=== PATIENT | female | born 1980 | race Caucasian/White ===

== ENCOUNTER 2020-12-06 11:55 | Outpatient (REF) | payer MEDICAID, SELFPAY | END 2020-12-06 11:56 | disposition home or self-care (01) | LOC: HO.MDS 11:55 | PROVIDERS: PCP Family Medicine; Visit Provider Internal Medicine Medical Oncology | DX: D50.9 Iron deficiency anemia, unspecified (principal) | CPT/HCPCS: 96365; J2916 ==

== ENCOUNTER 2020-12-10 08:13 | Outpatient (REF) | payer MEDICAID, SELFPAY | END 2020-12-10 08:14 | disposition home or self-care (01) | LOC: HO.MDS 08:13 | PROVIDERS: PCP Family Medicine; Visit Provider Internal Medicine Medical Oncology | DX: D50.9 Iron deficiency anemia, unspecified (principal) | CPT/HCPCS: 96365; J2916 ==

== ENCOUNTER 2020-12-13 08:21 | Outpatient (REF) | payer MEDICAID, SELFPAY | END 2020-12-13 08:22 | disposition home or self-care (01) | LOC: HO.MDS 08:21 | PROVIDERS: PCP Family Medicine; Visit Provider Internal Medicine Medical Oncology | DX: D50.9 Iron deficiency anemia, unspecified (principal) | CPT/HCPCS: 96365; J2916 ==

== ENCOUNTER 2020-12-18 08:08 | Outpatient (REF) | payer MEDICAID, SELFPAY ==
[2020-12-18 08:29] LABS: MANUAL DIFF FLAG NO
[2020-12-18 08:32] LABS: Basophils Percent Auto 0.3 % (0-2); Eosinophils Absolute Auto 0.1 X10*3/uL (0.0-0.4); Eosinophils Percent Auto 1.2 % (0-4); Hematocrit 32.8 % (37-47); Hemoglobin 10.1 g/dl (12.0-16.0); Imm Gran Abs Auto 0.01 X10*3/uL (0.00-0.03); Imm Gran Pct Auto 0.2 % (0.0-0.4); Lymphocytes Percent Auto 33.8 % (20-40); Mean Corpuscular HGB Conc 30.8 g/dl (31.0-35.0); Mean Corpuscular Hemoglobin 24.3 pg (27.0-33.0); Monocytes Absolute Auto 0.4 X10*3/uL (0.1-1.2); Monocytes Percent Auto 6.3 % (2-11); Neutrophils Absolute Auto 3.4 X10*3/uL (2.0-8.3); Neutrophils Percent Auto 58.2 % (45-73); Platelet Count 283 X10*3/uL (160-400); Red Blood Count 4.15 X10*6/uL (4.20-5.50); Red Cell Distribution Width 19.3 % (11.0-16.0); White Blood Count 5.9 X10*3/uL (4.8-10.8)
== END 2020-12-18 08:09 | disposition home or self-care (01) ==
LOC: HO.MDS 08:08
PROVIDERS: PCP Family Medicine; Visit Provider Internal Medicine Medical Oncology
DX: D50.9 Iron deficiency anemia, unspecified (principal)
CPT/HCPCS: 36415; 85025; 96365; J2916

== ENCOUNTER 2020-12-21 08:23 | Outpatient (REF) | payer MEDICAID, SELFPAY | END 2020-12-21 08:24 | disposition home or self-care (01) | LOC: HO.MDS 08:23 | PROVIDERS: PCP Family Medicine; Visit Provider Internal Medicine Medical Oncology | DX: D50.9 Iron deficiency anemia, unspecified (principal) | CPT/HCPCS: 96365; J2916 ==

== ENCOUNTER 2020-12-26 08:19 | Outpatient (REF) | payer MEDICAID, SELFPAY | END 2020-12-26 08:20 | disposition home or self-care (01) | LOC: HO.MDS 08:19 | PROVIDERS: PCP Family Medicine; Visit Provider Internal Medicine Medical Oncology | DX: D50.9 Iron deficiency anemia, unspecified (principal) | CPT/HCPCS: 96365; J2916 ==

== ENCOUNTER 2020-12-28 08:27 | Outpatient (REF) | payer MEDICAID, SELFPAY | END 2020-12-28 08:28 | disposition home or self-care (01) | LOC: HO.MDS 08:27 | PROVIDERS: PCP Family Medicine; Visit Provider Internal Medicine Medical Oncology | DX: D50.9 Iron deficiency anemia, unspecified (principal) | CPT/HCPCS: 96365; J2916 ==

== ENCOUNTER 2020-12-31 07:55 | Outpatient (REF) | payer MEDICAID, SELFPAY | END 2020-12-31 07:56 | disposition home or self-care (01) | LOC: HO.MDS 07:55 | PROVIDERS: PCP Family Medicine; Visit Provider Internal Medicine Medical Oncology | DX: D50.9 Iron deficiency anemia, unspecified (principal) | CPT/HCPCS: 96365; J2916 ==

== ENCOUNTER 2021-01-04 08:29 | Outpatient (REF) | payer MEDICAID, SELFPAY ==
[2021-01-04 08:53] LABS: MANUAL DIFF FLAG NO
[2021-01-04 08:54] LABS: Basophils Percent Auto 0.5 % (0-2); Eosinophils Absolute Auto 0.1 X10*3/uL (0.0-0.4); Eosinophils Percent Auto 1.1 % (0-4); Hematocrit 35.1 % (37-47); Hemoglobin 10.9 g/dl (12.0-16.0); Imm Gran Abs Auto 0.01 X10*3/uL (0.00-0.03); Imm Gran Pct Auto 0.2 % (0.0-0.4); Lymphocytes Absolute Auto 1.4 X10*3/uL (1.2-4.9); Lymphocytes Percent Auto 31.2 % (20-40); Mean Corpuscular HGB Conc 31.1 g/dl (31.0-35.0); Mean Corpuscular Volume 83.6 fL (80-98); Mean Platelet Volume 10.5 fL (9.4-12.3); Monocytes Absolute Auto 0.3 X10*3/uL (0.1-1.2); Monocytes Percent Auto 7.1 % (2-11); Neutrophils Absolute Auto 2.6 X10*3/uL (2.0-8.3); Neutrophils Percent Auto 59.9 % (45-73); Platelet Count 296 X10*3/uL (160-400); Red Cell Distribution Width 21.4 % (11.0-16.0); White Blood Count 4.4 X10*3/uL (4.8-10.8)
== END 2021-01-04 08:30 | disposition home or self-care (01) ==
LOC: HO.MDS 08:29
PROVIDERS: PCP Family Medicine; Visit Provider Internal Medicine Medical Oncology
DX: D50.9 Iron deficiency anemia, unspecified (principal)
CPT/HCPCS: 36415; 85025; 96365; J2916

== ENCOUNTER 2022-12-25 14:06 | Outpatient (REF) | payer MEDICAID, SELFPAY | END 2022-12-25 14:07 | disposition home or self-care (01) | LOC: HO.MDS 14:06 | PROVIDERS: Visit Provider Internal Medicine | DX: D50.9 Iron deficiency anemia, unspecified (principal) | CPT/HCPCS: 96365; J1756 ==

== ENCOUNTER 2022-12-29 10:30 | Outpatient (REF) | payer MEDICAID, SELFPAY | END 2022-12-29 10:31 | disposition home or self-care (01) | LOC: HO.MDS 10:30 | PROVIDERS: Visit Provider Internal Medicine | DX: D50.9 Iron deficiency anemia, unspecified (principal) | CPT/HCPCS: 96365; J1756 ==

== ENCOUNTER 2023-01-05 11:45 | Outpatient (REF) | payer MEDICAID, SELFPAY | END 2023-01-05 11:46 | disposition home or self-care (01) | LOC: HO.MDS 11:45 | PROVIDERS: Visit Provider Internal Medicine | DX: D50.9 Iron deficiency anemia, unspecified (principal) | CPT/HCPCS: 96374; J1756 ==

== ENCOUNTER 2023-01-13 10:44 | Outpatient (REF) | payer MEDICAID, SELFPAY | END 2023-01-13 10:45 | disposition home or self-care (01) | LOC: HO.MDS 10:44 | PROVIDERS: Visit Provider Internal Medicine | DX: D50.8 Other iron deficiency anemias (principal) | CPT/HCPCS: 96365; J1756 ==

== ENCOUNTER 2023-01-20 10:39 | Outpatient (REF) | payer MEDICAID, SELFPAY ==
[2023-01-20 11:28] LABS: MANUAL DIFF FLAG NO
[2023-01-20 11:32] LABS: Basophils Percent Auto 0.4 % (0-2); Eosinophils Percent Auto 0.6 % (0-4); Hematocrit 34.2 % (37.0-47.0); Hemoglobin 10.7 g/dl (12.0-16.0); Imm Gran Abs Auto 0.01 X10*3/uL (0.00-0.03); Imm Gran Pct Auto 0.2 % (0.0-0.4); Lymphocytes Absolute Auto 1.5 X10*3/uL (1.2-4.9); Lymphocytes Percent Auto 31.8 % (20-40); Mean Corpuscular HGB Conc 31.3 g/dl (31.0-35.0); Mean Corpuscular Hemoglobin 25.2 pg (27.0-33.0); Mean Corpuscular Volume 80.7 fL (80.0-98.0); Mean Platelet Volume 10.6 fL (9.4-12.3); Monocytes Absolute Auto 0.3 X10*3/uL (0.1-1.2); Monocytes Percent Auto 5.7 % (2-11); Neutrophils Absolute Auto 2.9 x10*3/uL (2.0-8.3); Neutrophils Percent Auto 61.3 % (45-73); Platelet Count 265 X10*3/uL (160-400); Red Blood Count 4.24 X10*6/uL (4.20-5.50); Red Cell Distribution Width 22.6 % (11.0-16.0); White Blood Count 4.7 X10*3/uL (4.8-10.8)
== END 2023-01-20 10:40 | disposition home or self-care (01) ==
LOC: HO.MDS 10:39
PROVIDERS: Visit Provider Internal Medicine
DX: D50.8 Other iron deficiency anemias (principal)
CPT/HCPCS: 36415; 85025; 96365; J1756

== ENCOUNTER 2023-01-26 10:36 | Outpatient (REF) | payer MEDICAID, SELFPAY | END 2023-01-26 10:37 | disposition home or self-care (01) | LOC: HO.MDS 10:36 | PROVIDERS: Visit Provider Internal Medicine | DX: D50.8 Other iron deficiency anemias (principal) | CPT/HCPCS: 96365; J1756 ==

== ENCOUNTER 2023-02-09 10:40 | Outpatient (REF) | payer MEDICAID, SELFPAY | END 2023-02-09 10:41 | disposition home or self-care (01) | LOC: HO.MDS 10:40 | PROVIDERS: Visit Provider Internal Medicine | DX: D50.8 Other iron deficiency anemias (principal) | CPT/HCPCS: 96365; J1756 ==

== ENCOUNTER 2023-02-16 10:43 | Outpatient (REF) | payer MEDICAID, SELFPAY | END 2023-02-16 10:44 | disposition home or self-care (01) | LOC: HO.MDS 10:43 | PROVIDERS: Visit Provider Internal Medicine | DX: D50.8 Other iron deficiency anemias (principal) | CPT/HCPCS: 96365; J1756 ==

== ENCOUNTER 2023-02-24 10:43 | Outpatient (REF) | payer MEDICAID, SELFPAY | END 2023-02-24 10:44 | disposition home or self-care (01) | LOC: HO.MDS 10:43 | PROVIDERS: Visit Provider Internal Medicine | DX: D50.8 Other iron deficiency anemias (principal) | CPT/HCPCS: 96365; J1756 ==

== ENCOUNTER 2023-02-26 11:54 | Outpatient (REF) | payer MEDICAID, SELFPAY ==
[2023-02-26 14:01] LABS: C Reactive Protein 0.15 mg/dL (< or = 0.50); Iron 70 mcg/dL (30-160); Percent Iron Saturation 26 % (15-50); Total Iron Binding Capacity 269 mcg/dL (228-428); Unsaturated Iron Binding 199 ug/dL
[2023-02-26 14:15] LABS: Ferritin 313 ng/mL (10-250)
[2023-02-26 14:26] LABS: Erythrocyte Sedimentation Rate 7 MM/HR (0-20)
[2023-02-28 22:14] LABS: TS Negative Control Passed; TS Panel A 1; TS Panel B 0; TS Positive Control Passed; TSpotTB Negative (Negative)
[2023-03-05 15:43] LABS: Anti Nuclear Antibody Pattern Nuclear, Homogeneous; Anti Nuclear Antibody Screen POSITIVE (NEGATIVE)
== END 2023-02-26 11:55 | disposition home or self-care (01) ==
LOC: HO.HHCL 11:54
PROVIDERS: Visit Provider Family Medicine
DX: Z11.1 Encounter for screening for respiratory tuberculosis (principal); D50.0 Iron deficiency anemia secondary to blood loss (chronic)
CPT/HCPCS: 36415; 82728; 83540; 85652; 86038; 86039; 86140; 86481

== ENCOUNTER 2023-08-03 09:01 | Outpatient (REF) | payer MEDICAID, SELFPAY | END 2023-08-03 09:02 | disposition home or self-care (01) | LOC: HO.LNP 09:01 | PROVIDERS: Visit Provider Internal Medicine | DX: N30.00 Acute cystitis without hematuria (principal) | CPT/HCPCS: 87086; 87147 ==

== ENCOUNTER → 2024-02-25 14:06 | Outpatient (RCR) | payer MEDICAID, SELFPAY ==
[2020-11-26 13:47] VITALS: BMI 34.4
[2020-11-26 13:51] VITALS: BP 129/74; PULSE 81; RESP 18; TEMP 36.6; O2SAT 98
--- NOTE | 2020-11-26 14:55 | MHC.HEMONCMA ---
Patient came in for a consult, states that she is doing well. Clinical summary was reviewed and updated. Patient had labs and will return in 6 months for a follow up. Dr Orellana ordered yrn, which i am waiting for Elicia to call me back with a date/time.
[2020-11-26 14:58] LABS: MANUAL DIFF FLAG NO
[2020-11-26 15:01] LABS: Basophils Percent Auto 0.2 % (0-2); Eosinophils Absolute Auto 0.1 X10*3/uL (0.0-0.4); Eosinophils Percent Auto 0.7 % (0-4); Hematocrit 30.3 % (37-47); Hemoglobin 9.1 g/dl (12.0-16.0); Imm Gran Abs Auto 0.04 X10*3/uL (0.00-0.03); Imm Gran Pct Auto 0.4 % (0.0-0.4); Lymphocytes Absolute Auto 1.5 X10*3/uL (1.2-4.9); Lymphocytes Percent Auto 16.3 % (20-40); Mean Corpuscular Hemoglobin 23.5 pg (27.0-33.0); Mean Corpuscular Volume 78.3 fL (80-98); Mean Platelet Volume 10.4 fL (9.4-12.3); Monocytes Absolute Auto 0.5 X10*3/uL (0.1-1.2); Monocytes Percent Auto 5.7 % (2-11); Neutrophils Absolute Auto 7.2 X10*3/uL (2.0-8.3); Neutrophils Percent Auto 76.7 % (45-73); Platelet Count 404 X10*3/uL (160-400); Red Blood Count 3.87 X10*6/uL (4.20-5.50); Red Cell Distribution Width 16.2 % (11.0-16.0); White Blood Count 9.4 X10*3/uL (4.8-10.8)
--- NOTE | 2020-11-26 15:06 | P.CNHO_ITS ---
Subjective - Subjective Chief complaint: Consult for: Iron deficiency anemia. Patient: new to practice Consult date: 11/26/20 Requesting Physician: jaswant. Primary Care Provider: Eliane Hernandez MD Medical Summary: DIAGNOSIS: IRON DEFICIENCY ANEMIA. HPI - Consult Narrative Reason for consult: Consult for: Iron deficiency anemia. Narrative: Jennifer Prather is a pleasant 40 year old lady, who tells me she has been tired for a couple of years, more so over the last couple of months. She had a CBC done on, 11/12. This revealed: WBC 5.8, HGB 10.3, HCT 32.3, MCV 76.2, PLT 297. Iron studies: . ROS: She has been feeling very weak. She said that is been going on for a few years however it has worsened over the past couple of months. No fever nor chills. Appetite is good. Weight is up and down. Sometimes she feels very dizzy. Especially if she tries to get up quickly. She sees spots in front of her eyes. She complains of chest pain and trouble breathing. She denies abdominal pain nausea vomiting heartburn indigestion. Bowels are working without any gross blood in it. Her appetite is fair. Weight is stable. no dysuria no hematuria. She does have heavy periods. Sometimes she has them twice a month. She has heavy flow. She complains of joint pains. She has depression. She has pruritus. Family history: Her older sister has anemia. No cancer in the family. Social history: She works as a home health aide. She is not . She has 4 children. She smokes marijuana occasionally. Denies alcohol nor cigarette smoking. Review of Systems - Constitutional Reports system reviewed and no additional complaints, except as documented, Reports lack of energy, Reports malaise, Reports weight gain - Eyes Reports system reviewed and no additional complaints, except as documented - ENT Reports system reviewed and no additional complaints, except as documented - Cardiovascular Reports system reviewed and no additional complaints, except as documented - Respiratory Reports no additional respiratory complaints - Gastrointestinal Reports system reviewed and no additional complaints, except as documented - Genitourinary Reports no additional female genitourinary complaints, Reports heavy periods - Musculoskeletal Reports system reviewed and no additional complaints, except as documented - Integumentary/Breasts Skin/Breast: Reports no additional skin complaints - Neurologic Reports system reviewed and no additional complaints, except as documented - Psychiatric Reports system reviewed and no additional complaints, except as documented - Endocrine Reports no additional endocrine complaints - Hematologic/Lymphatic Reports system reviewed and no additional complaints, except as documented - Allergic/Immunologic Reports system reviewed and no additional complaints, except as documented Oncology Screenings - ECOG Performance Status ECOG Performance Status: 1 [facility] Medical History: Medical History (Last Updated 11/26/20 @ 13:55 by Laly Shah) Anemia Depression GERD (gastroesophageal reflux disease) Ovarian cyst Seizures Spondylisthesis Functional capacity: independent ambulation Patient : No Family History: Family History (Last Updated 11/26/20 @ 14:02 by Laly Shah) Daughter Asthma Mother Chronic mental illness HTN (hypertension) Sister Anemia Maternal Uncle Pacemaker Surgical History: Surgical History (Last Updated 11/26/20 @ 14:03 by Laly Shah) History of bilateral tubal ligation Hx of ovarian cystectomy Social History: Social History (Last Updated 11/26/20 @ 14:02 by Laly Shah) Alcohol History: Alcohol intake: former Alcohol History Details: Alcohol intake frequency: does not drink Tobacco History: Patient Tobacco Use Status: Former Tobacco user Smoke Quit Date: 2008 Substance Use History: Substance Use Type: Marijuana Home Medications and Allergies Home Medications Medication Instructions Recorded Confirmed Type acetaminophen [Tylenol Extra 1,000 mg PO Q6H PRN 11/26/20 11/26/20 History Strength] albuterol sulfate 1 inh INHALATION Q4H 11/26/20 11/26/20 History cholecalciferol (vitamin D3) 25 mcg PO DAILY 11/26/20 11/26/20 History [Vitamin D3] citalopram 50 mg PO DAILY 11/26/20 11/26/20 History omeprazole 20 mg PO DAILY 11/26/20 11/26/20 History Allergies Allergy/AdvReac Type Severity Reaction Status Date / Time No Known Allergies Allergy Verified 11/26/20 13:56 Physical Exam Vital signs: Vital Signs Temp 97.8 F 11/26/20 13:51 Pulse 81 11/26/20 13:51 Resp 18 11/26/20 13:51 BP 129/74 11/26/20 13:51 Pulse Ox 98 11/26/20 13:51 Intake & Output 11/25/20 11/26/20 11/26/20 18:59 06:59 18:59 Other: Weight 88.2 kg Weight in Grams [id number] Weight 88.2 kg - Constitutional Present: mild distress - Routine HEENT Exam Head: Present: normal inspection ENT: Present: mucous membranes moist - Routine Neck Exam Present: supple - Routine Respiratory Exam Present: CTAB - Routine Cardiovascular Exam Cardiovascular: Present: RRR, S1, S2 - Routine Abdominal Exam Present: soft, nontender - Routine Rectal Exam Patient deferred: digital exam - Routine Extremities Exam Present: nontender Hem/Onc Consult Result - Labs CBC & Chem 7: 11/26/20 14:43 11/26/20 14:43 Labs: Short CBC 11/26/20 Range/Units 14:43 WBC 9.4 (4.8-10.8) X10*3/uL Hgb 9.1 L (12.0-16.0) g/dl Hct 30.3 L (37-47) % Plt Count 404 H (160-400) X10*3/uL Assessment and Plan (1) Iron deficiency anemia due to chronic blood loss Status: Acute This is a pleasant 40-year-old lady with a history of chronic anemia. She has microcytic hypochromic anemia. Recent hemoglobin was 10.3. Today's hemoglobin is 9.1. DIFFERENTIAL DIAGNOSIS: 1. IRON DEFICIENCY ANEMIA: Iron studies from today revealed . These are consistent with iron deficiency. She does have heavy periods which is the underlying cause. Other possibility is iron malabsorption related to something like celiac disease. 2. ACD: Less likely. 3. Hemolytic anemia: Is in the differential. 4. B12/folate deficiency: Could be coexisting. PLAN: I checked iron studies as detailed above. Will check transglutaminase IgA to look for celiac disease, <1. She can have multiple malabsorption and so will check B12 and folate levels.( 261. 7.4.) Check LDH: 151. Will arrange for IV iron. Will arrange for Ferrlecit, twice weekly for about a month. Follow her blood count and then decide to continue. She tells me she has had it a couple of times in the past. She will return in 3 months for a follow-up visit. Thank you, CC: Dr. Hernandez.
[2020-11-26 15:41] LABS: Alanine Aminotransferase 14 U/L (0-31); Albumin Level 3.9 g/dL (3.5-5.0); Alkaline Phosphatase 64 U/L (39-117); Anion Gap 9 (12-20); Aspartate Amino Transferase 16 U/L (5-31); Bilirubin Total 0.4 mg/dL (0.0-1.0); Blood Urea Nitrogen 12 mg/dL (9-16); Calcium 8.8 mg/dL (8.4-10.2); Carbon Dioxide 26 mmol/L (22-29); Chloride 110 mmol/L (96-108); Creatinine Clr Calc Pharmacy 98.2; Estimated Glomerular Filt Rate > 60; Glucose Random 77 mg/dL (60-115); Iron 24 mcg/dL (30-160); Percent Iron Saturation 5 % (15-50); Potassium 3.7 mmol/L (3.3-5.1); Sodium 141 mmol/L (135-145); Total Iron Binding Capacity 443 mcg/dL (228-428); Total Protein 6.7 g/dL (6.5-8.0); Unsaturated Iron Binding 419 ug/dL
[2020-11-26 15:55] LABS: Ferritin 5 ng/mL (10-122)
[2020-11-26 17:37] LABS: Immature Retic Fraction 7.1 % (3.0-15.9); Retic HGB Equivalent 26.1 pg (30.0-35.0); Reticulocyte Percent 0.8 % (0.5-1.8); Reticulocytes Absolute 0.032 X10*6/uL (0.026-0.095)
[2020-11-26 18:24] LABS: Folate 7.4 ng/mL (> or = 4.0); Vitamin B12 261 pg/mL (200-900)
[2020-11-26 18:41] LABS: Lactate Dehydrogenase 151 U/L (122-220)
[2020-11-28 23:01] LABS: Transglutaminase IgA 1 U/mL
--- NOTE | 2020-11-30 10:32 | MHC.HEMONCMA ---
Spoke with patient, she is aware of the date and time of her Ferrilicit infusion on 12/06/2020 at 12pm. She is aware of the location and duration of this appt.
== END | disposition home or self-care (01) ==
LOC: HO.ONC 11-26 13:17
PROVIDERS: PCP Family Medicine; Referring Provider Family Medicine; Visit Provider Internal Medicine Medical Oncology
DX: D50.9 Iron deficiency anemia, unspecified (principal)
CPT/HCPCS: 36415; 80053; 82607; 82728; 82746; 83516; 83540; 83615; 85025; 85045; 99214

== ENCOUNTER 2024-07-10 16:57 | Emergency (ER) | payer OTHER, SELFPAY ==
--- NOTE | ~2024-07-10 | CT_ITS ---
CLINICAL HISTORY: right flank pain CT abdomen and pelvis without contrast Comparison: CT - ABD PELVIS [place] CONT [id number] - 12/07/10 03:39 EDT Findings: Lung bases clear. Normal gallbladder, bile ducts, liver, pancreas, spleen, and adrenal glands. Normal kidneys, ureters, and urinary bladder. Normal stomach, small bowel, appendix, and colon. No free fluid or free air within the abdomen or pelvis. No abdominal aortic aneurysm. Bones intact. IMPRESSION: No acute findings. This document has been electronically signed by: Phan Anton MD on 07/10/2024 21:23:31
[2024-07-10 17:26] VITALS: BP 159/76; PULSE 74; RESP 18; TEMP 37; O2SAT 100; BMI 29.9
--- NOTE | 2024-07-10 17:26 | ED.GENADULT ---
HPI - General Adult General Chief complaint: Abdominal Pain Stated complaint: severe rt flank pain Time Seen by Provider: 07/10/24 20:32 Source: patient Mode of arrival: ambulatory Limitations: no limitations History of Present Illness ED Provider: Luiza Mosley PA-C HPI narrative: Patient is a 44 year old assigned female at with a history of anemia and kidney stones presenting to the emergency department today with right sided low back pain x1 month and multiple episodes of bloody urine. Patient states that over the last month she has had intermittent low back pain and has had 3 episodes of blood in her urine. Patient denies any dizziness, lightheadedness, abdominal pain, nausea, vomiting, fever, chills, blurry vision, double vision, loss of vision, chest pain, difficulty breathing, shortness of breath, night sweats, pain with urination, increased urinary frequency, increased urinary urgency, syncope or a near syncopal episode, recent trauma or falls, bowel incontinence, bladder incontinence, or any other complaints at this time. Relieving factors: none Exacerbating factors: none Associated symptoms: denies other symptoms Treatments prior to arrival: none Related Data Home Medications ?Medication ?Instructions ?Recorded ?Confirmed acetaminophen 500 mg capsule 1,000 mg PO Q6H PRN Pain 11/26/20 12/15/22 albuterol sulfate 90 mcg/actuation 1 inh inhalation Q4H 11/26/20 12/15/22 breath activated powder inhaler,sensor cholecalciferol (vitamin D3) 25 25 mcg PO DAILY 11/26/20 12/15/22 mcg (1,000 unit) tablet (Vitamin D3) citalopram 40 mg tablet 50 mg PO DAILY 11/26/20 12/15/22 Previous Rx's ?Medication ?Instructions ?Recorded cefuroxime axetil 250 mg tablet 250 mg PO BID 7 days #14 tabs 07/10/24 Allergies Allergy/AdvReac Type Severity Reaction Status Date / Time No Known Allergies Allergy Verified 07/10/24 17:28 Review of Systems Constitutional: Constitutional: Reports no additional constitutional complaints, Denies chills, Denies fever(s) and Denies night sweats Eyes: Eyes: Reports no additional eye complaints, Denies blurry vision, Denies change in vision, Denies diplopia, Denies eye discharge, Denies loss of vision and Denies eye pain ENT: Denies dizziness Cardiovascular: Cardiovascular: Reports no additional cardiovascular complaints, Denies chest pain, Denies lightheadedness, Denies Loss of Consciousness and Denies dyspnea Respiratory: Respiratory: Reports no additional respiratory complaints and Denies dyspnea Gastrointestinal: Gastrointestinal: Reports no additional gastrointestinal complaints, Denies abdominal pain, Denies melena, Denies hematochezia, Denies change in bowel habits and Denies change in stool character Genitourinary: Genitourinary: Reports hematuria, Denies urinary frequency, Denies dysuria, Denies urinary incontinence, Denies urinary hesitancy and Denies urinary urgency Musculoskeletal: Musculoskeletal: Reports no additional musculoskeletal complaints, Reports back pain, Denies numbness and Denies tingling Neurologic: Denies dizziness, Denies loss of vision, Denies numbness and Denies tingling Psychiatric: Psychiatric: Reports no additional psychiatric complaints Endocrine: Endocrine: Reports no additional endocrine complaints Hematologic/Lymphatic: Hematologic/Lymphatic: Reports no additional hematologic/lymphatic complaints Allergic/Immunologic: Allergic/Immunologic: Reports no additional allergic/immunologic complaints [facility] Past Medical History Attestation statement: The following information was validated with the patient. Source: old records reviewed and nursing notes reviewed Medical History Spondylisthesis Ovarian cyst Seizures Anemia Depression GERD (gastroesophageal reflux disease) Surgical History Hx of ovarian cystectomy History of bilateral tubal ligation Family History Family History Daughter Asthma Mother Chronic mental illness HTN (hypertension) Sister Anemia Maternal Uncle Pacemaker Social History Social History Alcohol intake: former Patient Tobacco Use Status: Former Tobacco user Smoked in Last 30 Days: No Use of substances other than those prescribed or required for medical reasons: No Substance Use Type: Marijuana Advance Directives: No Advance Directives Information Provided: No Do you have a plan to hurt others: No Plan Patient : No Physical Exam ED Vital Signs: Vital Signs - 24 hr 07/10/24 17:26 07/10/24 20:21 Temperature 98.6 F 98.2 F Pulse Rate 74 53 Respiratory Rate 18 16 Blood Pressure 159/76 H 123/73 Pulse Oximetry 100 100 Oxygen Delivery Method Room Air Room Air BMI result Body Mass Index 29.9 Const General: cooperative, no acute distress, alert and awake Nutritional Appearance: well nourished Orientation/consciousness: patient oriented x3 Limitations: no limitations HENMT Head: Yes normal to inspection and Yes atraumatic Ears: hearing grossly normal bilaterally and external ears normal General nose exam: Normal external nose present, no nasal discharge noted and no epistaxis Face and sinus: Yes normal facial exam, No abrasion and No laceration Mouth: Normal oral and palatal mucosa present, no drooling and no muffled voice Eyes General: appearance normal, both eyes and all related structures Periorbital: periorbital findings normal Eyelids: Yes eyelids normal Conjunctivae: conjunctivae normal Pupils: Equal, round and reactive pupils present EOM: EOMs intact bilaterally Neck Neck: Yes normal visual inspection, Yes full ROM and Yes no lymphadenopathy Chest Chest palpation & inspection: normal inspection of the chest Resp Effort & Inspection: normal respiratory effort and able to speak in complete sentences GI Inspection: Yes normal to inspection Neuro General: patient oriented x3 and moves all extremities Cranial nerves: Yes Equal, round and reactive pupils present Cognition (Neuro): normal cognition Extrem General: Yes normal to inspection, Yes full ROM and Yes capillary refill normal Psych Appearance: grossly normal Mental Status: mental status grossly normal Affect: normal affect Attitude: cooperative Thought process: Normal thought process present Thought content: Normal thought content present Insight: Good insight present (Psych) Course Course Course Narrative: This is a Rapid Medical Examination (RME) performed by Jarad Dowd PA-C in triage. Full HPI, ROS, assessment and treatment plan per primary provider in the Main ED. 44 yo female here for eval of right flank pain radiating to her right abdomen intermittent x1 month, now constant. assoc hematuria 3 days ago. no dysuria. also endorses pain w/ intercourse. LMP 7-8 days ago. Plan: labs, UA Medications Administered Discontinued Medications Generic Name Dose Route Start Last Admin Trade Name Freq PRN Reason Stop Dose Admin Ceftriaxone Sodium 1 gm 07/10/24 20:33 07/10/24 20:52 Ceftriaxone Sodium 1 Gm Vial IVPUSH 07/10/24 20:34 1 gm ONCE ONE Administration Ketorolac Tromethamine 15 mg 07/10/24 20:33 07/10/24 20:52 Ketorolac Tromethamine 15 Mg/Ml Vial IVPUSH 07/10/24 20:34 15 mg ONCE ONE Administration Morphine Sulfate 4 mg 07/10/24 20:33 07/10/24 20:52 Morphine Sulfate 4 Mg/Ml Cartridge IVPUSH 07/10/24 20:34 4 mg ONCE ONE Administration Protocol Ondansetron HCl 4 mg 07/10/24 20:33 07/10/24 20:52 Ondansetron Hcl 4 Mg/2 Ml Vial IVPUSH 07/10/24 20:34 4 mg ONCE ONE Administration Medical Decision Making Medical Decision Making [facility] Narrative: Patient is a 44 year old assigned female at with a history of anemia and kidney stones presenting to the emergency department today with right sided low back pain x1 month and multiple episodes of bloody urine. Patient's physical exam was unremarkable. Patient's blood work was unremarkable. Patient's urine showed evidence of an acute infection - given the patient's symptoms, will treat. Patient's CT abdomen/pelvis showed no acute process. I explained my physical exam findings as well as all test results to the patient. I answered all questions asked by the patient. Patient was given IV ceftriaxone and Morphine in the department which she stated helped her pain significantly. I stressed the importance of the patient taking her medication as directed (either prescribed or as the over the counter packaging recommends). I stressed the importance of the patient following up with her primary care provider. I stressed the importance of the patient returning to the emergency department immediately if her symptoms were to worsen or if she were to develop any dizziness, shortness of breath, difficulty breathing, chest pain, blurry vision, loss of vision, nausea, vomiting, abdominal pain, fever, chills, back pain, or any other complaints. Patient verbalized agreement and understanding with this treatment plan and discharge. Differential Diagnosis Differential Diagnoses: The differential diagnosis associated with the presentation includes UTI Pyelonephritis - no CT evidence of this, labs reassuring Kidney stone Obstructing kidney stone Admission/Observation Consideration of admission/observation: Escalation of care including admission/observation considered Patient would have been admitted to the hospital had her work up had any findings where hospital admission was appropriate and her clinical presentation warranted hospital admission. Lab Data [facility] Lab Attestation statement: I reviewed the patient's lab results. My interpretation of these results are in the [facility] Rationale portion of this note. 07/10/24 17:52 07/10/24 17:52 Labs: Lab Results 07/10/24 07/10/24 Range/Units 17:52 17:54 WBC 5.4 (4.8-10.8) X10*3/uL RBC 3.72 L (4.20-5.50) X10*6/uL Hgb 10.7 L (12.0-16.0) g/dl Hct 32.7 L (37.0-47.0) % MCV 87.9 (80.0-98.0) fL MCH 28.8 (27.0-33.0) pg MCHC 32.7 (31.0-35.0) g/dl RDW 13.3 (11.0-16.0) % Plt Count 268 (160-400) X10*3/uL MPV 10.3 (9.4-12.3) fL Immature Gran % (Auto) 0.2 (0.0-0.4) % Neut % (Auto) 51.0 (45-73) % Lymph % (Auto) 38.5 (20-40) % Cotton % (Auto) 8.2 (2-11) % Eos % (Auto) 1.7 (0-4) % Baso % (Auto) 0.4 (0-2) % Lymph # (Auto) 2.1 (1.2-4.9) X10*3/uL Cotton # (Auto) 0.4 (0.1-1.2) X10*3/uL Eos # (Auto) 0.1 (0.0-0.4) X10*3/uL Baso # (Auto) 0.0 (0.0-0.2) X10*3/uL Abs Immat Gran (auto) 0.01 (0.00-0.03) X10*3/uL Absolute Neuts (auto) 2.7 (2.0-8.3) x10*3/uL Absolute Nucleated RBC 0.000 (0.0-0.012) X10*3/uL Nucleated RBC % (auto) 0.0 (0.0-0.2) /100WBC Sodium 142 (135-145) mmol/L Potassium 3.9 (3.3-5.1) mmol/L Chloride 110 H (96-108) mmol/L Carbon Dioxide 25 (22-29) mmol/L Anion Gap 11 L (12-20) BUN 16 (9-16) mg/dL Creatinine 0.77 (0.5-1.4) mg/dL Estim Creat Clear Calc 92.3 Estimated GFR > 60 Random Glucose 76 (60-115) mg/dL Calcium 8.4 D (8.4-10.2) mg/dL Magnesium 2.2 (1.6-2.6) mg/dL Total Bilirubin 0.2 (0.0-1.0) mg/dL AST 17 (5-31) U/L ALT 10 (0-31) U/L Alkaline Phosphatase 49 (39-117) U/L Total Protein 7.0 (6.5-8.0) g/dL Albumin 4.0 (3.5-5.0) g/dL Urine Color Yellow Urine Appearance Clear Urine pH 6.5 (5.0-9.0) Ur Specific [place] >= 1.030 H (1.005-1.025) Urine Protein Trace (Neg-Trace) mg/dL Urine Glucose (UA) Negative (Negative) mg/dL Urine Ketones Trace (Negative) mg/dL Urine Blood Trace H (Negative) Urine Nitrite Negative (Negative) Ur Leukocyte Esterase Moderate (2+) H (Negative) Urine RBC 6-10 H (0-2) /HPF Urine WBC >50 H (0-5) /HPF Ur Squamous Epith Cells 11-20 (0-2) /HPF Urine Bacteria 1+ (None Seen) Hyaline Casts 0-2 (0-2) /LPF Urine Test NEGATIVE (NEGATIVE) Independent Interpretation I performed an independent interpretation of an: CT Scan Interpretation: My interpretation is in agreement with the radiologist's impression of this imaging study. Report Number: [id number]: Total DLP = 551.00 mGy-cm CLINICAL HISTORY: right flank pain CT abdomen and pelvis without contrast Comparison: CT - A[place]VIS [place] CONT [id number] - 12/07/10 03:39 EDT Findings: Lung bases clear. Normal gallbladder, bile ducts, liver, pancreas, spleen, and adrenal glands. Normal kidneys, ureters, and urinary bladder. Normal stomach, small bowel, appendix, and colon. No free fluid or free air within the abdomen or pelvis. No abdominal aortic aneurysm. Bones intact. IMPRESSION: No acute findings. This document has been electronically signed by: Phan Anton MD on 07/10/2024 21:23:31 Dictated By: Phan Anton MD Signed By: Electronically signed by Phan Anton MD 07/10/242124 Radiology Impression Discussion of test interpretation with radiology: I have reviewed the radiologist's reading. Prescription Management I considered prescription management with: Antibiotic (patient prescribed an antibiotic for her UTI) Critical Care Time Critical Care Time Critical Care Time: Yes Total Critical Care Time: 33 Attestation: I spent 33 minutes of Critical Care Time with this patient. This does not include time spent on separately reported billable procedures. Discharge Plan Discharge Clinical Impression: UTI (urinary tract infection) Patient Disposition: Home, Self-Care Instructions: Urinary Tract Infection in Women (DC) Additional Instructions: Take your medication as prescribed. Follow up with your primary care provider. Return to the emergency department immediately if your symptoms worsen or if you develop any dizziness, shortness of breath, difficulty breathing, chest pain, blurry vision, loss of vision, nausea, vomiting, abdominal pain, fever, chills, back pain, or any other complaints. Prescriptions: New cefuroxime axetil 250 mg tablet 250 mg PO BID 7 Days Qty: 14 0RF No Action acetaminophen [Tylenol Extra Strength] 500 mg Capsule 1,000 mg PO Q6H PRN (Reason: Pain) cholecalciferol (vitamin D3) [Vitamin D3] 25 mcg (1,000 unit) Tablet 25 mcg PO DAILY citalopram 40 mg Tablet 50 mg PO DAILY albuterol sulfate 90 mcg/actuation Aero Powdr Breath Act W/Sensor 1 inh INHALATION Q4H Referrals: Eliane Hernandez MD [Primary Care Provider] - Stand Alone Forms: Work/School Release Print Language: Macedonian
[2024-07-10 18:04] LABS: MANUAL DIFF FLAG NO
[2024-07-10 18:05] LABS: Basophils Percent Auto 0.4 % (0-2); Eosinophils Absolute Auto 0.1 X10*3/uL (0.0-0.4); Eosinophils Percent Auto 1.7 % (0-4); Hematocrit 32.7 % (37.0-47.0); Hemoglobin 10.7 g/dl (12.0-16.0); Imm Gran Abs Auto 0.01 X10*3/uL (0.00-0.03); Imm Gran Pct Auto 0.2 % (0.0-0.4); Lymphocytes Absolute Auto 2.1 X10*3/uL (1.2-4.9); Lymphocytes Percent Auto 38.5 % (20-40); Mean Corpuscular HGB Conc 32.7 g/dl (31.0-35.0); Mean Corpuscular Hemoglobin 28.8 pg (27.0-33.0); Mean Corpuscular Volume 87.9 fL (80.0-98.0); Mean Platelet Volume 10.3 fL (9.4-12.3); Monocytes Absolute Auto 0.4 X10*3/uL (0.1-1.2); Monocytes Percent Auto 8.2 % (2-11); Neutrophils Absolute Auto 2.7 x10*3/uL (2.0-8.3); Platelet Count 268 X10*3/uL (160-400); Red Blood Count 3.72 X10*6/uL (4.20-5.50); Red Cell Distribution Width 13.3 % (11.0-16.0); White Blood Count 5.4 X10*3/uL (4.8-10.8)
[2024-07-10 18:08] LABS: Appearance Urine Clear; Color Urine Yellow; Glucose Urine UA Negative (Negative); Leukocyte Esterase Urine Moderate (2+) (Negative); Nitrite Urine Negative (Negative); PH 6.5 (5.0-9.0); Specific Gravity - Urine >= 1.030 (1.005-1.025); UMIC TRIGGER UACC YES; Urine Blood Trace (Negative); Urine Ketones Trace mg/dL (Negative); Urine Protein Trace mg/dL (Neg-Trace)
[2024-07-10 18:13] LABS: Bacteria Urine 1+ (None Seen); Hyaline Casts Urine 0-2 /LPF (0-2); UACC Culture Trigger YES; WBC Urine >50 /HPF (0-5)
[2024-07-10 18:18] LABS: Alanine Aminotransferase 10 U/L (0-31); Alkaline Phosphatase 49 U/L (39-117); Anion Gap 11 (12-20); Aspartate Amino Transferase 17 U/L (5-31); Bilirubin Total 0.2 mg/dL (0.0-1.0); Blood Urea Nitrogen 16 mg/dL (9-16); Calcium 8.4 mg/dL (8.4-10.2); Carbon Dioxide 25 mmol/L (22-29); Chloride 110 mmol/L (96-108); Creatinine Clr Calc Pharmacy 92.3; Estimated Glomerular Filt Rate > 60; Glucose Random 76 mg/dL (60-115); Magnesium 2.2 mg/dL (1.6-2.6); Potassium 3.9 mmol/L (3.3-5.1); Sodium 142 mmol/L (135-145)
[2024-07-10 18:25] LABS: UPreg QC Valid YES; Urine Pregnancy NEGATIVE (NEGATIVE)
[2024-07-10 20:21] VITALS: BP 123/73; PULSE 53; RESP 16; TEMP 36.8; O2SAT 100
[2024-07-10] MEDS: ondansetron HCL 4 MG/2 ML VIAL IVPUSH (20:52)
[2024-07-10] MEDS: Morphine Sulfate 4 MG/ML CARTRIDGE IVPUSH (20:52)
[2024-07-10] MEDS: Ketorolac Tromethamine 15 MG/ML VIAL IVPUSH (20:52)
[2024-07-10] MEDS: cefTRIAXone sodium 1 GM VIAL IVPUSH (20:52)
--- NOTE | 2024-07-10 21:29 | PC.NURSE ---
pt a&ox4, respirations even and unlabored, pt reporting onset of right sided flank pain x2 weeks, reports pain and blood with urination as well as nausea. pt denies cp/sob. 20G placed in left ac, pt medicated per aug, tolerated well. lights dimmed.
[2024-07-10 21:59] VITALS: BP 125/63; PULSE 60; RESP 16; TEMP 37; O2SAT 100
== END 2024-07-10 22:00 | disposition home or self-care (01) ==
PROVIDERS: Physician Assistant Medical; Emergency Provider Internal Medicine; PCP Family Medicine
DX: N39.0 Urinary tract infection, site not specified (principal); R10.2 Pelvic and perineal pain; M54.50 Low back pain, unspecified; R31.9 Hematuria, unspecified; Z79.899 Other long term (current) drug therapy
CPT/HCPCS: 36415; 74176; 80053; 81001; 81025; 83735; 85025; 87086; 87147; 96374; 96375; 99284; 99285; J0696; J1885; J2270; J2405

== ENCOUNTER → 2024-07-10 19:29 | Outpatient (BNV) | payer SELFPAY | PROVIDERS: Emergency Provider Internal Medicine; PCP Family Medicine; Visit Provider Radiology Diagnostic Radiology | DX: R10.9 Unspecified abdominal pain (principal) | CPT/HCPCS: 74176 ==

== ENCOUNTER 2024-07-21 14:04 | Emergency (ER) | payer MEDICAID, SELFPAY ==
--- NOTE | 2024-07-21 14:24 | ED_ITS ---
HPI - General Adult General Chief complaint: Abdominal Pain Stated complaint: R side/back pain Time Seen by Provider: 07/21/24 18:52 Source: patient Mode of arrival: ambulatory Limitations: no limitations History of Present Illness ED Provider: Dr. Silvia Cagle HPI narrative: Patient comes to the emergency room complaining of right-sided flank pain. Patient states it started about 1-1/2 weeks ago. Patient states that since she was diagnosed with a UTI on July 10, the pain has not changed at all. Back then, patient was given prescription of cefuroxime, patient states that she finish the entire course of antibiotics. Patient denies fever chills, complaining of bladder spasm with urination. Denies hematuria. Related Data Home Medications ?Medication ?Instructions ?Recorded ?Confirmed acetaminophen 500 mg capsule 1,000 mg PO Q6H PRN Pain 11/26/20 12/15/22 albuterol sulfate 90 mcg/actuation 1 inh inhalation Q4H 11/26/20 12/15/22 breath activated powder inhaler,sensor cholecalciferol (vitamin D3) 25 25 mcg PO DAILY 11/26/20 12/15/22 mcg (1,000 unit) tablet (Vitamin D3) citalopram 40 mg tablet 50 mg PO DAILY 11/26/20 12/15/22 Previous Rx's ?Medication ?Instructions ?Recorded cefuroxime axetil 250 mg tablet 250 mg PO BID 7 days #14 tabs 07/10/24 ketorolac 10 mg tablet 10 mg PO Q8H PRN pain #10 tabs 07/21/24 levofloxacin 500 mg tablet 500 mg PO DAILY #9 tabs 07/21/24 phenazopyridine 100 mg tablet 100 mg PO TID #5 tabs 07/21/24 Allergies Allergy/AdvReac Type Severity Reaction Status Date / Time No Known Allergies Allergy Verified 07/21/24 14:26 Review of Systems 2 Review of Systems: Constitutional : No Weight loss, No Fever, No Chills, No Night Sweats, No Fatigue, No Malaise ENT/Mouth : No Hearing loss, No Ear Pain, No Nasal Congestion, No Sinus Pain, No Hoarseness, No sore throat, No Rhinorrhea, No Swallowing Difficulty Eyes: No Eye Pain, No Swelling, No Redness, No Foreign Body, No Discharge, No Vision Changes Cardiovascular : No Chest Pain, No SOB, No Dyspnea on Exertion, No Orthopnea, No Edema, No Palpitations Respiratory : No Cough, No Sputum, No Wheezing, No Smoke Exposure, No Dyspnea Gastrointestinal : No Nausea, No Vomiting, No Diarrhea, No Constipation, No abdominal Pain, No Hematochezia, No Melena Genitourinary : , complaining of bladder spasms, complaining of Dysuria, No Urinary Frequency, No Hematuria, No Urinary Incontinence, No Urgency, No Flank Pain, No Urinary Flow Changes, No Hesitancy Musculoskeletal : No joint pain, No Myalgias, No Joint Swelling Skin : No Skin Lesions, No rash Neuro : No Weakness, No Numbness, No Paresthesias, No Loss of Consciousness, No Dizziness, No Headache Psych : No Anxiety/Panic, No Depression, No SI/HI/AH/VH, No Social Issues, Heme/Lymph: No Bruising, No Bleeding,No Lymphadenopathy Endocrine : No Polyuria, No Polydipsia, No Temperature Intolerance PMFSH Past Medical History Medical History Spondylisthesis Ovarian cyst Seizures Anemia Depression GERD (gastroesophageal reflux disease) Surgical History Hx of ovarian cystectomy History of bilateral tubal ligation Family History Family History Daughter Asthma Mother Chronic mental illness HTN (hypertension) Sister Anemia Maternal Uncle Pacemaker Social History Social History Alcohol intake: former Patient Tobacco Use Status: Former Tobacco user Substance Use Type: Marijuana Advance Directives: No Advance Directives Information Provided: Yes Do you have a plan to hurt others: No Plan Physical Exam ED Vital Signs: Vital Signs - 24 hr 07/21/24 14:25 07/21/24 17:36 Temperature 98.9 F 97.4 F Pulse Rate 78 63 Respiratory Rate 16 18 Blood Pressure 135/80 143/73 H Pulse Oximetry 100 100 Oxygen Delivery Method Room Air Room Air BMI result Body Mass Index 30.1 Const Other: Appearance: Alert. Oriented X3. No acute distress. Eyes: Pupils equal, round and reactive to light. ENT: Pharynx normal. Neck: Normal inspection. Neck supple. No lymph nodes noted. No crepitus CVS: Normal heart rate and rhythm. Pulses normal. Normal S1 and S2 Respiratory: No respiratory distress. Breath sounds normal. No Wheezing. No rales Abdomen: Soft and nontender. No rigidity. No distention. Mild right-sided flank pain Skin: Skin warm and dry. Normal skin color. Normal skin turgor. Extremities: No lower extremity edema. No Lacerations. No Rash Neuro: Oriented X 3. No motor deficit. No sensory deficit. Moving all extremities. No slurred speech. CN 2 through 12 grossly intact Psych: calm, cooperative, normal affect Course Course Course Narrative: RME, this is a rapid medical exam performed by Sebastián Sevilla please refer to primary provider for complete H&P- 44-year-old female presents for evaluation of right flank pain. Patient was seen here 07/10/2024 and given cefuroxime b.i.d. x7 days for a UTI. She had a CT scan of the time that did not show any acute findings. Plan for repeat labs will defer repeat imaging at this time Medical Decision Making Medical Decision Making [facility] Narrative: My interpretation of labs: Patient's white blood cell count within normal limits, chemistry does not show any significant electrolyte abnormality. Patient's glucose earlier today was 54, patient was given something to eat and drink, improved to 85, patient asymptomatic. Urinalysis shows a small amount of leukocyte esterase, no blood in the urine, a small amount of white blood cells, trace bacteria. Overall, the urinalysis looks better than on July 10. However, given patient's symptoms, we will treat as a UTI/pyelonephritis I reviewed patient's microbiology results from previous urinalysis, patient's urine grew strep agalactiae As mentioned above, given symptoms, we will treat with levofloxacin, phenazopyridine, an IM ketorolac. I reviewed patient's CT scan from previous visits, no acute findings, no kidney stones visualized Patient denies any falls or any injuries Differential Diagnosis Differential Diagnoses: The differential diagnosis associated with the presentation includes (UTI, kidney stones, pyelonephritis, musculoskeletal pain) Lab Data [facility] Lab Attestation statement: I reviewed the patient's lab results. 07/21/24 14:39 07/21/24 14:39 Labs: Lab Results 07/21/24 07/21/24 07/21/24 Range/Units 14:39 16:29 16:35 WBC 4.9 (4.8-10.8) X10*3/uL RBC 3.78 L (4.20-5.50) X10*6/uL Hgb 10.7 L (12.0-16.0) g/dl Hct 33.0 L (37.0-47.0) % MCV 87.3 (80.0-98.0) fL MCH 28.3 (27.0-33.0) pg MCHC 32.4 (31.0-35.0) g/dl RDW 13.4 (11.0-16.0) % Plt Count 308 (160-400) X10*3/uL MPV 10.4 (9.4-12.3) fL Immature Gran % (Auto) 0.2 (0.0-0.4) % Neut % (Auto) 61.2 (45-73) % Lymph % (Auto) 28.2 (20-40) % [place] % (Auto) 9.0 (2-11) % Eos % (Auto) 1.0 (0-4) % Baso % (Auto) 0.4 (0-2) % Lymph # (Auto) 1.4 (1.2-4.9) X10*3/uL [place] # (Auto) 0.4 (0.1-1.2) X10*3/uL Eos # (Auto) 0.1 (0.0-0.4) X10*3/uL Baso # (Auto) 0.0 (0.0-0.2) X10*3/uL Abs Immat Gran (auto) 0.01 (0.00-0.03) X10*3/uL Absolute Neuts (auto) 3.0 (2.0-8.3) x10*3/uL Absolute Nucleated RBC 0.000 (0.0-0.012) X10*3/uL Nucleated RBC % (auto) 0.0 (0.0-0.2) /100WBC Sodium 142 (135-145) mmol/L Potassium 3.7 (3.3-5.1) mmol/L Chloride 111 H (96-108) mmol/L Carbon Dioxide 27 (22-29) mmol/L Anion Gap 8 L (12-20) BUN 9 (9-16) mg/dL Creatinine 0.98 (0.5-1.4) mg/dL Estim Creat Clear Calc 72.8 Estimated GFR > 60 POC Glucose 87 (60-115) mg/dL Random Glucose 54 L* (60-115) mg/dL Calcium 8.2 L (8.4-10.2) mg/dL Total Bilirubin 0.2 (0.0-1.0) mg/dL AST 22 (5-31) U/L ALT 22 (0-31) U/L Alkaline Phosphatase 50 (39-117) U/L Total Protein 7.1 (6.5-8.0) g/dL Albumin 4.1 (3.5-5.0) g/dL Lipase 26 (8-78) U/L Beta HCG, Quant < 2 mIU/mL Urine Color Yellow Urine Appearance Clear Urine pH 6.0 (5.0-9.0) Ur Specific [place] >= 1.030 H (1.005-1.025) Urine Protein Trace (Neg-Trace) mg/dL Urine Glucose (UA) Negative (Negative) mg/dL Urine Ketones Trace (Negative) mg/dL Urine Blood Negative (Negative) Urine Nitrite Negative (Negative) Ur Leukocyte Esterase Small (1+) H (Negative) Urine RBC 0-2 (0-2) /HPF Urine WBC 11-20 H (0-5) /HPF Ur Squamous Epith Cells 3-5 (0-2) /HPF Urine Bacteria Trace (None Seen) Hyaline Casts 0-2 (0-2) /LPF 07/21/24 Range/Units 17:44 WBC (4.8-10.8) X10*3/uL RBC (4.20-5.50) X10*6/uL Hgb (12.0-16.0) g/dl Hct (37.0-47.0) % MCV (80.0-98.0) fL MCH (27.0-33.0) pg MCHC (31.0-35.0) g/dl RDW (11.0-16.0) % Plt Count (160-400) X10*3/uL MPV (9.4-12.3) fL Immature Gran % (Auto) (0.0-0.4) % Neut % (Auto) (45-73) % Lymph % (Auto) (20-40) % [place] % (Auto) (2-11) % Eos % (Auto) (0-4) % Baso % (Auto) (0-2) % Lymph # (Auto) (1.2-4.9) X10*3/uL [place] # (Auto) (0.1-1.2) X10*3/uL Eos # (Auto) (0.0-0.4) X10*3/uL Baso # (Auto) (0.0-0.2) X10*3/uL Abs Immat Gran (auto) (0.00-0.03) X10*3/uL Absolute Neuts (auto) (2.0-8.3) x10*3/uL Absolute Nucleated RBC (0.0-0.012) X10*3/uL Nucleated RBC % (auto) (0.0-0.2) /100WBC Sodium (135-145) mmol/L Potassium (3.3-5.1) mmol/L Chloride (96-108) mmol/L Carbon Dioxide (22-29) mmol/L Anion Gap (12-20) BUN (9-16) mg/dL Creatinine (0.5-1.4) mg/dL Estim Creat Clear Calc Estimated GFR POC Glucose 85 (60-115) mg/dL Random Glucose (60-115) mg/dL Calcium (8.4-10.2) mg/dL Total Bilirubin (0.0-1.0) mg/dL AST (5-31) U/L ALT (0-31) U/L Alkaline Phosphatase (39-117) U/L Total Protein (6.5-8.0) g/dL Albumin (3.5-5.0) g/dL Lipase (8-78) U/L Beta HCG, Quant mIU/mL Urine Color Urine Appearance Urine pH (5.0-9.0) Ur Specific [place] (1.005-1.025) Urine Protein (Neg-Trace) mg/dL Urine Glucose (UA) (Negative) mg/dL Urine Ketones (Negative) mg/dL Urine Blood (Negative) Urine Nitrite (Negative) Ur Leukocyte Esterase (Negative) Urine RBC (0-2) /HPF Urine WBC (0-5) /HPF Ur Squamous Epith Cells (0-2) /HPF Urine Bacteria (None Seen) Hyaline Casts (0-2) /LPF Independent Interpretation I performed an independent interpretation of an: CT Scan (From July 10) Discharge Plan Discharge Clinical Impression: Pyelonephritis Patient Disposition: Home, Self-Care Instructions: Kidney Infection (ED) Additional Instructions: Please follow-up with your primary care physician tomorrow. If you have any worsening or new symptoms, please return to the emergency room or call 911 Prescriptions: New levofloxacin 500 mg tablet 500 mg PO DAILY Qty: 9 0RF ketorolac 10 mg tablet 10 mg PO Q8H PRN (Reason: pain) Qty: 10 0RF Rx Instructions: maximum total duration of 5 days from all oral, intranasal, or parenteral formulations phenazopyridine 100 mg tablet 100 mg PO TID Qty: 5 0RF No Action acetaminophen [Tylenol Extra Strength] 500 mg Capsule 1,000 mg PO Q6H PRN (Reason: Pain) cholecalciferol (vitamin D3) [Vitamin D3] 25 mcg (1,000 unit) Tablet 25 mcg PO DAILY citalopram 40 mg Tablet 50 mg PO DAILY albuterol sulfate 90 mcg/actuation Aero Powdr Breath Act W/Sensor 1 inh INHALATION Q4H cefuroxime axetil 250 mg tablet 250 mg PO BID 7 Days Qty: 14 0RF Print Language: Palauan
[2024-07-21 14:25] VITALS: BP 135/80; PULSE 78; RESP 16; TEMP 37.2; O2SAT 100; BMI 30.1
[2024-07-21 14:54] LABS: MANUAL DIFF FLAG NO
[2024-07-21 14:55] LABS: Basophils Percent Auto 0.4 % (0-2); Eosinophils Absolute Auto 0.1 X10*3/uL (0.0-0.4); Hemoglobin 10.7 g/dl (12.0-16.0); Imm Gran Abs Auto 0.01 X10*3/uL (0.00-0.03); Imm Gran Pct Auto 0.2 % (0.0-0.4); Lymphocytes Absolute Auto 1.4 X10*3/uL (1.2-4.9); Lymphocytes Percent Auto 28.2 % (20-40); Mean Corpuscular HGB Conc 32.4 g/dl (31.0-35.0); Mean Corpuscular Hemoglobin 28.3 pg (27.0-33.0); Mean Corpuscular Volume 87.3 fL (80.0-98.0); Mean Platelet Volume 10.4 fL (9.4-12.3); Monocytes Absolute Auto 0.4 X10*3/uL (0.1-1.2); Neutrophils Percent Auto 61.2 % (45-73); Platelet Count 308 X10*3/uL (160-400); Red Blood Count 3.78 X10*6/uL (4.20-5.50); Red Cell Distribution Width 13.4 % (11.0-16.0); White Blood Count 4.9 X10*3/uL (4.8-10.8)
[2024-07-21 15:49] LABS: Alanine Aminotransferase 22 U/L (0-31); Albumin Level 4.1 g/dL (3.5-5.0); Alkaline Phosphatase 50 U/L (39-117); Anion Gap 8 (12-20); Aspartate Amino Transferase 22 U/L (5-31); Bilirubin Total 0.2 mg/dL (0.0-1.0); Blood Urea Nitrogen 9 mg/dL (9-16); Calcium 8.2 mg/dL (8.4-10.2); Carbon Dioxide 27 mmol/L (22-29); Chloride 111 mmol/L (96-108); Creatinine Clr Calc Pharmacy 72.8; Estimated Glomerular Filt Rate > 60; Glucose Random 54 mg/dL (60-115); HCG Quantitative < 2 mIU/mL; Lipase 26 U/L (8-78); Potassium 3.7 mmol/L (3.3-5.1); Sodium 142 mmol/L (135-145); Total Protein 7.1 g/dL (6.5-8.0)
[2024-07-21 16:33] LABS: Glucose, Whole Blood 87 mg/dL (60-115)
[2024-07-21 16:45] LABS: Appearance Urine Clear; Color Urine Yellow; Glucose Urine UA Negative (Negative); Leukocyte Esterase Urine Small (1+) (Negative); Nitrite Urine Negative (Negative); Specific Gravity - Urine >= 1.030 (1.005-1.025); UMIC TRIGGER UACC YES; Urine Blood Negative (Negative); Urine Ketones Trace mg/dL (Negative); Urine Protein Trace mg/dL (Neg-Trace)
--- NOTE | 2024-07-21 16:48 | PC.NURSE ---
Critical called for hypoglycemia in [place]. Pt assesses, given sandwich and elida karen. POC rechecked and 80s. Pt then given more crackers and juice and instructed to tell this RN if any changes
[2024-07-21 17:15] LABS: Bacteria Urine Trace (None Seen); Hyaline Casts Urine 0-2 /LPF (0-2); RBC Urine 0-2 /HPF (0-2); UACC Culture Trigger YES
[2024-07-21 17:36] VITALS: BP 143/73; PULSE 63; RESP 18; TEMP 36.3; O2SAT 100
[2024-07-21 17:48] LABS: Glucose, Whole Blood 85 mg/dL (60-115)
[2024-07-21] MEDS: levoFLOXacin 500 MG TABLET PO (19:29)
[2024-07-21] MEDS: Phenazopyridine HCL 100 MG TABLET PO (19:29)
[2024-07-21] MEDS: Ketorolac Tromethamine 60 MG/2 ML VIAL IM (19:29)
[2024-07-21 19:48] VITALS: BP 143/73; PULSE 63; RESP 18; TEMP 36.3; O2SAT 100
== END 2024-07-21 19:49 | disposition home or self-care (01) ==
PROVIDERS: Physician Assistant; Emergency Provider Emergency Medicine; PCP Family Medicine
DX: N12 Tubulo-interstitial nephritis, not specified as acute or chronic (principal); R10.9 Unspecified abdominal pain; E16.2 Hypoglycemia, unspecified
CPT/HCPCS: 36415; 80053; 81001; 82947; 83690; 84702; 85025; 87086; 96372; 99283; 99284; J1885

== ENCOUNTER 2025-02-19 21:26 | Emergency (ER) | payer OTHER, SELFPAY ==
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
[2025-02-19 21:54] VITALS: BP 118/73; BP 136/71; PULSE 81; PULSE 89; RESP 16; TEMP 36.8; O2SAT 100; O2SAT 99; BMI 30.7
--- OUTSIDE RECORDS SUMMARY | 2025-02-19 22:22 | XMS_ITS | Clinical Summary ---
Author Organization [employer] Address [address] [facility] [address] [place] [address] Care Team Providers Care Director Of Social Services Name Role Phone Eliane Hernandez MD Primary Care Provider [phone] Allergies No known active allergies Medications * This document contains information received from the source organization and may not represent a complete record from that organization. calcipotriene (Dovonex) 0.005 % ointment APPLY A THIN LAYER TWICE DAILY TO AFFECTED AREAS RUB IN GENTLY AND COMPLETELY FOR 2 WKS ALTERNATING 60 g 4 3 Active betamethasone dipropionate (Diprolene) 0.05 % ointment APPLY 2 TIMES EVERY DAY A THIN LAYER TO THE AFFECTED AREA(S) 2 WEEKS ALTERNATING WITH DOVONEX 45 g 4 3 Active citalopram (CeleXA) 10 MG tabletIndication s:Mixed anxiety and depressive disorder Take 1 tablet (10 mg) by mouth in the morning. 30 tablet 11 3 Active clobetasol (Temovate) 0.05 % ointment Apply topically 2 times daily. 60 g 3 3 Active Blood Pressure Monitor kit Check blood pressure once daily and as needed 1 kit 3 Active Mometasone Furoate (Asmanex HFA) 100 MCG/ACT aerosol INHALE 1 PUFF IN THE MORNING AND AT BEDTIME. RINSE MOUTH WITH WATER AFTER USE TO REDUCE AFTERTASTE AND INCIDENCE OF CANDIDIASIS. DO NOT SWALLOW. 13 g 1 4 Active albuterol (Ventolin HFA) 108 (90 Base) MCG/ACT inhalerIndicatio ns:Uncomplicated asthma, unspecified asthma severity, unspecified whether persistent TAKE 2 PUFFS BY MOUTH EVERY 4 TO 6 HOURS NEEDED 18 g 1 4 Active Active Problems Problem Noted Date Diagnosed Date Overweight 02/27/2023 Assessment & Plan (02/27/2023 4:07 AM EDT): - lifestyle modifications Elevated blood-pressure read ing, without diagnosis of hypertension 02/26/2023 Assessment & Plan (02/27/2023 4:15 AM EDT): - Goal BP < 140/90 per JNC-8 and < 130/80 per ACC/AHA guideline (Treatment threshold >= 140/90) - BP elevated today - Continue working on lifestyle modifications - Recommended self-monitoring BP - Follow up in 3-6 mo, sooner if any problem arises Allergic rhinitis 11/28/2022 Asthma 11/27/2022 Assessment & Plan (02/27/2023 4:15 AM EDT): - Pt might be to progressing to moderate - persistent asthma. - Continue Flovent - continue albuterol HFA - Will schedule a Pulmonary Function Test. - Consider Singulair for maintenance if minimal improvement with Flovent. Assessment & Plan (11/28/2022 11:43 AM EDT): - Pt might be to progressing to moderate - persistent asthma. - Restart Flovent - continue albuterol HFA - Will schedule a Pulmonary Function Test. - Consider Singulair for maintenance if minimal improvement with Flovent. Mixed anxiety and depressive disorder 11/27/2022 Assessment & Plan (02/27/2023 4:19 AM EDT): -tried counseling in the past and tried several different antidepressants + Escitalopram (SSRI) -patient was contacted by [facility] clinician in November 2022 -had counseling before but did not last a long-time -continue Citalopram 10 mg daily (restarted since November 2022) -discussed about 988 suicide prevention hotline Assessment & Plan (11/27/2022 1:49 PM EDT): History of Depression; -tried counseling in the past and tried several different antidepressants + Escitalopram (SSRI) -patient gave permission for [facility] to contact her -had counseling before but did not last a long-time -has tried Citalopram in the past which was effective, interested in starting again. -will Rx Citalopram 10 mg daily Health care maintenance 11/27/2022 Assessment & Plan (11/28/2022 11:41 AM EDT): - immunizations reviewed - recommended COVID booster; pt declined - continue practicing healthy lifestyle cancer screening: - cervical cancer - recommended to follow up with PC INSTALLATION ENGINEER at [facility] - breast cancer - will discuss when she wants to start - colon cancer at age 46 (average risk) - screening lab ordered Chest pain 11/27/2022 Assessment & Plan (02/27/2023 4:16 AM EDT): - Normal EKG at last visit and today - continue optimizing treatment for anxiety and depression - possibly due to asthma; evaluating with PFT Assessment & Plan (11/27/2022 1:46 PM EDT): EKG showed: Sinus bradycardia, otherwise unremarkable -likely due to anxiety or asthma -will optimize treatment for asthma and anxiety Chronic back pain 09/11/2015 Acquired spondylolisthesis 01/22/2012 Anemia 01/22/2012 Assessment & Plan (02/26/2023 12:10 PM EDT): S/p Endometrial Ablation 03/2022 due to Iron Deficiency Anemia -Seen by Concrete Block Maker in 11/2022, received Venofer, received 9 doses -recent labs showed some improvement in hemoglobin and hematocrit, still anemic -will refer back to Gynecology -will evaluate her for possible psoriatic arthritis Assessment & Plan (11/28/2022 11:46 AM EDT): - Improved after endometrial ablation - Previously received iron infusion due to intolerance to oral iron - last iron infusion appt with [facility] Heme in 2020 - will check lab and refer to [facility] Hematology service again for iron infusion Cyst of ovary 01/22/2012 Depressive disorder 01/22/2012 Assessment & Plan (02/26/2023 12:13 PM EDT): Pt was contacted by [facility] Clinician but was unable to receive Outpatient treatment due to insurance status at the time. -Pt declined counseling, given number for Crisis -continue citalopram Gastroesophageal reflux disease 01/22/2012 Abnormal uterine bleeding (AUB) 01/22/2012 Assessment & Plan (02/27/2023 4:15 AM EDT): -s/p Endometrial Ablation in Mar 2018; Pt is still having bleeding resulting iron deficiency anemia -will refer to Machine Ceramic Coater at [facility] Assessment & Plan (11/28/2022 11:44 AM EDT): - s/p endometrial ablation in Mar 2018 - still some bleeding Psoriasis 01/22/2012 Assessment & Plan (11/28/2022 11:50 AM EDT): - evaluated in Derm clinic in 2019 - prescribed Mahtomedi-smooth, calcipotriene, and betamethasone - avoid scratching - use hypoallergenic skin care product - liberal moisturization - judicious use of topical steroid Sacroiliitis 01/22/2012 Resolved Problems Problem Noted Date Diagnosed Date Resolved Date Seizure 09/11/2015 11/27/2022 Immunizations Immunization Administration Dates Next Due Hep B, adult 02/26/2023 Influenza injectable quadriv alent IIV4 with preservative 02/26/2023,03/10/2018,06/16/2017,2015 Influenza injectable quadriv alent preservative free 05/29/2016 Influenza, IIV3, injectable 04/03/2011 Influenza, trivalent, adjuvanted 04/05/2017 Tdap 12/05/2013 Family History Medical History Relation Name Comments Asthma Daughter Bone cancer Father Diabetes type II Mother Hypertension Mother Anemia Sister Asthma Son Relation Name Status Comments Daughter Father Mother Sister Son Social History Tobacco Use Types Packs/Day Years Used Date Smoking Tobacco: Former Cigarettes Passive Smoke Exposure: Past Smokeless Tobacco: Never Depression Answer Date Recorded Patient Health Questionnaire-9 Score 7 11/27/2022 Housing Stability Answer Date Recorded What is your housing situation today? I have adonis fletcher 04/14/[address] you li ve. Do you have problems with any of the following? None of the above 04/14/2023 Food Insecurity Answer Date Recorded Within the past 12 months, y ou worried that your food would run out before you got money to buy more: Never True 04/14/2023 Within the past 12 months,th e food you bought just didn't last and you didn't have enough money to get more: Never True Transportation Answer Date Recorded In the past 12 months, has l ack of transportation kept you from medical appts, meetings, work or from getting things needed for daily living? No 04/14/2023 Utilities Answer Date Recorded In the past 12 months, has t he electric, gas, oil or water company threatened to shut off services in your home? No 04/14/2023 Depression Answer Date Recorded Patient Health Questionnaire-2 Score 2 11/27/2022 Comments Unknown Sex and Gender Information Value Date Recorded Sex Assigned at Female 04/21/2022 10:14 AM EDT Legal Sex Female 10:14 AM EDT Gender Identity Female 04/21/2022 10:14 AM EDT Sexual Orientation Straight 06/08/2023 1: 57 PM EST Sexual Orientation Lesbian or Dan 06/08/2023 1: 57 PM EST Last Filed Vital Signs Vital Sign Reading Time Taken Comments Blood Pressure 115/77 08/03/2023 6:49 PM EST Pulse 79 08/03/2023 6:49 PM EST Temperature 37.2 C (98.9 F) 08/03/2023 6:49 PM EST Respiratory Rate 20 08/03/2023 6:49 PM EST Oxygen Saturation 100% 08/03/2023 6:49 PM EST Inhaled Oxygen Concentration - - Weight 77.7 kg (171 lb 6.4 oz) 08/03/2023 6:49 P M EST Height 159.9 cm (5' 2.95 ) 02/26/2023 11:11 AM E DT Body Mass Index 30.42 02/26/2023 11:11 AM EDT Plan of Treatment Health Maintenance Due Date Last Done Comments Disability Screening 1981 Alcohol/Substance Use Screening 1993 Family Planning (PISQ) 1996 HPV Vaccines (1 - 3-dose series) 1996 Pneumococcal Vaccine: Pediatrics (0 to 5 Years) and At-Risk Patients (6 to 49) Years (1 of 2 - PCV) 2000 Mammogram 2021 Cervical Cancer Screening 07/15/2022 HPV/Cotest 07/15/2022 07/15/2017 Pap Smear 07/15/2022 07/15/2017 Hepatitis B Vaccines (2 of 3 - 19+ 3-dose series) 03/26/2023 02/26/2023 Depression Screening 11/28/2023 11/27/2022, 11/28/19 23 SDOH Screening 11/28/2023 11/27/2022 DTaP/Tdap/Td Vaccines (2 - Td or Tdap) 12/06/2023 12/05/2013 COVID-19 Vaccine (2 - season) 2024 09/11/2021 Influenza Vaccine (#1) 2025 , 03/10/2018, 06/16/2017, Additional history exists Tobacco Screening 10/25/2025 10/25/2024 Zoster Vaccines (1 of 2) 2031 RSV Patients and Patients Aged 60 years or older (1 - 1-dose 75+ series) 2056 HIV Screening Completed 11/27/2022, 07/2021, 11/12/2020 Hepatitis C Screening Completed 11/27/2022 , 10/21/2021, 11/12/2020 HIB Vaccines Aged Out No longer eligi ble based on patient's age to complete this topic Hepatitis A Vaccines Aged Out No long er eligible based on patient's age to complete this topic IPV Vaccines Aged Out No longer eligi ble based on patient's age to complete this topic Meningococcal B Vaccine Aged Out No l onger eligible based on patient's age to complete this topic Meningococcal Vaccine Aged Out No av gurinder eligible based on patient's age to complete this topic RSV under 20 months Aged Out No longe r eligible based on patient's age to complete this topic Rotavirus Vaccines Aged Out No longer eligible based on patient's age to complete this topic Procedures Procedure Name Priority Date/Time Associated Diagnosis Comments HEPATITIS C AB W/REFL TO HCV RNA, QN, PCR Routine 11/27/2022 12:00 PM EDT Routine general medical examination at a health care facility HIV 1/2 ANTIGEN/ANTIBODY, FOURTH GENERATION W/RFL Routine 11/27/2022 12:00 PM EDT Routine general medical examination at a health care facility PAP/HPV Routine 07/15/2017 from Last 3 Months or Most Recently Relevant to Health Maintenance Results * Hepatitis C Antibody with Reflex to HCV, RNA, Quantitative, Real-Time PCR (11/27/2022 12:00 PM EDT) Pathologist [facility] Hepatitis C Antibody NON-REACT ALEJANDRA NON-REACT ALEJANDRA As[employer] Index 0.08 <1.00 Asurvest Comment: HCV antibody was non-reactive. There is no laboratory evidence of HCV infection. In most cases, no further action is required. However, if recent HCV exposure is suspected, a test for HCV RNA (test code 25571) is suggested. For additional information please refer to http://education.Legal Shine/faq/PDK43o7 (This link is being provided for informational/ educational purposes only.) Blood Venous blood specimen / Unknown 11/27/2022 12:00 PM EDT 11/27/2022 12:00 PM EDT Narrative [facility] - 11/28/2022 6:18 PM EDT FASTING:NO FASTING: NO us Eliane Hernandez MD LAB BLOOD ORDERABLES Final Resul t [facility] [address], [place] [address] [employer] [address] [place] [address] * HIV-1/2 Antigen and Antibodies, Fourth Generation, with Reflexes (11/27/2022 12:00 PM EDT) Pathologist [facility] HIV Antigen/Antibody, 4th Generation NON-REAC TIVE NON-REAC TIVE Asurvest Comment: HIV-1 antigen and HIV-1/HIV-2 antibodies were not detected. There is no laboratory evidence of HIV infection. PLEASE NOTE: This information has been disclosed to you from records whose confidentiality may be protected by state law. If your state requires such protection, then the state law prohibits you from making any further disclosure of the information without the specific written consent of the person to whom it pertains, or as otherwise permitted by law. A general authorization for the release of medical or other information is NOT sufficient for this purpose. For additional information please refer to http://[employer].Legal Shine/faq/KFP952 (This link is being provided for informational/ educational purposes only.) The performance of this assay has not been clinically validated in patients less than 2 years old. Blood Venous blood specimen / Unknown 11/27/2022 12:00 PM EDT 11/27/2022 12:00 PM EDT Narrative [facility] - 11/28/2022 6:18 PM EDT FASTING:NO FASTING: NO Eliane Hernandez MD LAB BLOOD ORDERABLES Final Resul t [facility] [address], [place] [address] [employer] [facility] [address] [place] [address] * Pap Smear (07/15/2017) Pap Negative for intraephithelial lesion or malignancy Negative for intraephithelial lesion or malignancy, Other HPV Undetected Undetected, Indeterminate, Quantitative, Not Detected Historical Provider HEALTH MAINTENANCE Final Result from Last 3 Months or Most Recently Relevant to Health Maintenance Insurance [employer] Care Teams Director Of Social Services Relationship Specialty Start Date End Date Eliane Hernandez MD [address] [place] [id number] PCP - General Family Medicine 04/21/12
--- OUTSIDE RECORDS SUMMARY | 2025-02-19 22:22 | XMS_ITS | Encounter Summary ---
Author Organization [employer] Address [address] [place] [address] Care Team Providers Care Telegraph Messenger Name Role Phone Eliane Hernandez MD Primary Care Provider [phone] Encounter Details Date Type Department Care Team ([facility] Contact Info) Description 05/20/2023 Abstract [facility] MEDICINE [address] [place], [place] [phone] [place] Social History Tobacco Use Types Packs/Day Years [...] or Dan 06/08/2023 1: 57 PM EST documented as of this encounter Plan of Treatment Not on file documented as of this encounter Procedures Procedure Name Priority Date/Time Associated Diagnosis Comments PAP/HPV Routine 07/15/2017 documented in this encounter Results * Pap Smear (07/15/2017) Pap Negative for intraephithelial lesion or malignancy Negative for intraephithelial lesion or malignancy, Other HPV Undetected Undetected, Indeterminate, Quantitative, Not Detected us Historical Provider HEALTH MAINTENANCE Final Result documented in this encounter Visit Diagnoses Not on filedocumented in this encounter Additional Health Concerns Assessment Noted Time PHQ-9 Depression Total Score: 7 11/28/19 23 11:05 AM EDT documented as of this encounter Care Teams Telegraph Messenger Relationship Specialty Start Date End Date Eliane Hernandez MD [address] [place] [id number] PCP - General Family Medicine 04/21/12 documented as of this encounter
--- OUTSIDE RECORDS SUMMARY | 2025-02-19 22:22 | XMS_ITS | Encounter Summary ---
Author Organization [employer] Address [address] [facility] 7t [place] [address] Care Team Providers Care Wrecker Operator Name Role Phone Eliane Hernandez MD Primary Care Provider [phone] Reason for Referral * Imaging (Routine) - Closed Specialty Diagnoses / Procedures Referred By Contac t Referred To Contact Radiology Diagnoses Breast cancer screening by mammogram Procedures BI Mammogram Screening Bilateral Eliane Hernandez MD [address] [place] [address] Phone: tel: fax: [facility] [address] [place] [address] Phone: tel: fax: Referral ID Status Reason Start Date Expiration Date Visits Re quested Visits Authorized [id number] Closed 03/27/2023 03/26/2024 1 1 Encounter Details Date Type Department Care Team (Late st Contact Info) Description 03/27/2023 Orders Only [facility] MEDICINE [address] [place], [place] [phone] Eliane Hernandez MD [address] [place], [place] [phone] Breast cancer screening by mammogram (Primary Dx); Positive MARITZA (antinuclear antibody); Iron deficiency anemia due to chronic blood loss; Psoriasis; Arthralgia, unspecified joint Social History Tobacco Use Types Packs/Day Years Used Date Smoking Tobacco: Former Cigarettes Passive Smoke Exposure: Past Smokeless Tobacco: Never Depression Answer Date Recorded Patient Health Questionnaire-9 Score 7 11/27/2022 Housing Stability Answer Date Recorded What is your housing situation today? I have adonis fletcher 03/30/[address] you li ve. Do you have problems with any of the following? None of the above 03/30/2023 Food Insecurity Answer Date Recorded Within the past 12 months, y ou worried that your food would run out before you got money to buy more: Never True 03/30/2023 Within the past 12 months,th e food you bought just didn't last and you didn't have enough money to get more: Never True 02/2023 Transportation Answer Date Recorded In the past 12 months, has l ack of transportation kept you from medical appts, meetings, work or from getting things needed for daily living? No 03/30/2023 Utilities Answer Date Recorded In the past 12 months, has t he electric, gas, oil or water company threatened to shut off services in your home? No 03/30/2023 Depression Answer Date Recorded Patient Health Questionnaire-2 [...] as of this encounter Plan of Treatment Scheduled Orders Name Type Priority Associated Diagnoses Orde r Schedule BI Mammogram Screening Bilateral Imaging Routine Breast cancer screening by mammogram Expected: 03/27/2023 (Approximate), Expires: 05/27/2024 documented as of this encounter Visit Diagnoses Diagnosis Breast cancer screening by mammogram- Primary Positive MARITZA (antinuclear antibody) Other and unspecified nonspecific immunological findings Iron deficiency anemia due to chronic blood loss Iron deficiency anemia secondary to blood loss (chronic) Psoriasis Other psoriasis Arthralgia, unspecified joint documented in this encounter Additional Health Concerns Assessment Noted Time PHQ-9 Depression Total Score: 7 11/28/19 23 11:05 AM EDT documented as of this encounter Care Teams Wrecker Operator Relationship Specialty Start Date End Date Eliane Hernandez MD [address] [place] [id number] PCP - General Family Medicine 04/21/12 documented as of this encounter
--- OUTSIDE RECORDS SUMMARY | 2025-02-19 22:22 | XMS_ITS | Encounter Summary ---
Author Organization [employer] Address [address] [facility] [address] [place] [address] Care Team Providers Care Instrument And Control Service Person Name Role Phone Eliane Hernandez MD Primary Care Provider [phone] Encounter Details Date Type Department Care Team ([facility] st Contact Info) Description 11/27/2022 Orders Only [facility] MEDICINE [address] [place] [address] Janie Leonard LPN Social History Tobacco Use Types Packs/Day Years Used Date Smoking Tobacco: Former Cigarettes Passive Smoke Exposure: Past Smokeless Tobacco: Never Depression Answer Date Recorded Patient Health Questionnaire-9 Score 7 11/27/2022 Depression Answer Date Recorded Patient Health Questionnaire-2 Score 2 11/27/2022 Comments Unknown Sex and Gender Information Value Date Recorded Sex Assigned at Female 04/21/2022 10:14 AM EDT Legal Sex Female 10:14 AM EDT Gender Identity Female 04/21/2022 10:14 AM EDT Sexual Orientation Straight 06/08/2023 1: 57 PM EST Sexual Orientation Lesbian or Dan 06/08/2023 1: 57 PM EST COVID-19 Exposure Response Date Recorded In the last 10 days, have yo u been in contact with someone who was confirmed or suspected to have Coronavirus/COVID-19? No / Unsure 11/27/2022 10:33 AM EDT documented as of this encounter Functional Status * Over the past 2 weeks, how often have you been bothered by any of the following problems? Question Answer Date of Assessment Author Patient Health Questionnaire -2 Score 2 11/27/2022 11:05 AM EDT Sivan Ambrosio [place] * If you checked off any problems on this questionnaire so far, Question Answer Date of Assessment Author How difficult have these problems made it for you to do your work, take care of things at home, or get along with other people? Somewhat difficult 11/27/2022 11:05 AM Sivan Rosales [place] * Over the past 2 weeks, how often have you been bothered by any of the following problems? Question Answer Date of Assessment Author Little interest or pleasure in doing things Several days 11/27/2022 11:05 AM Sivan Rosales MA Feeling down, depressed, or hopeless Several days 11/27/2022 11:05 AM Sivan Roasles [place] Trouble falling or staying asleep, or sleeping too much Several days 11/27/2022 11:05 AM Kayla Rosales [place] Feeling tired or having little energy Several days 11/27/2022 11:05 AM Sivan Rosales [place] Poor appetite or overeating Several days 11/27/2022 11 :05 AM Kayla Rosales MA Feeling bad about yourself - or that you are a failure or have let yourself or your family down Several days 11/27/2022 11:05 AM Sivan Rosales [place] Trouble concentrating on things, such as reading the newspaper or watching television Not at all 11/27/2022 11:05 AM Sivan Rosales MA Moving or speaking so slowly that other people could have noticed? Or the opposite - being so fidgety or restless that you have been moving around a lot more than usual. Several days 11/27/2022 11:05 AM Sivan Rosales MA Thoughts that you would be better off or hurting yourself in some way Not at all 11/27/2022 11:05 AM Varun Rosales MA Patient Health Questionnaire-9 Score 7 11/27/2022 11:05 AM Ciarra Rosales MA documented as of this encounter Plan of Treatment Not on file documented as of this encounter Visit Diagnoses Not on filedocumented in this encounter Additional Health Concerns Assessment Noted Time PHQ-9 Depression Total Score: 7 11/28/19 11:05 AM EDT documented as of this encounter Care Teams Instrument And Control Service Person Relationship Specialty Start Date End Date Eliane Hernandez MD [address] [place] [address] PCP - General Family Medicine 04/21/12 documented as of this encounter
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
--- OUTSIDE RECORDS SUMMARY | 2025-02-19 22:22 | XMS_ITS | Encounter Summary ---
Author Organization [employer] Address [address] [facility] [address] [place] [address] Care Team Providers Care Mobile Homes Repairer Name Role Phone Eliane Hernandez MD Primary Care Provider [phone] Encounter Details Date Type Department Care Team ([facility] st Contact Info) Description 12/08/2023 Orders Only [facility] MEDICINE [address] [place], [place] [phone] Eliane Hernandez MD [address] [place], [place] [phone] Iron deficiency anemia due to chronic blood loss (Primary Dx); Elevated blood-pressure reading, without diagnosis of hypertension; Vitamin D deficiency; Routine screening for STI (sexually transmitted infection) Social History Tobacco Use Types Packs/Day Years [...] Type Priority Associated Diagnoses Orde r Schedule CBC auto differential Lab Routine Iron deficiency anemia due to chronic blood loss Expected: 12/08/2023 (Approximate), Expires: 12/07/2024 Ferritin Lab Routine Iron deficiency anemia due to chronic blood loss Expected: 12/08/2023 (Approximate), Expires: 12/07/2024 Iron And Total Iron Binding Capacity Lab Routine Iron deficiency anemia due to chronic blood loss Expected: 12/08/2023, Expires: 12/07/2024 Vitamin B12/Folate, Serum Panel Lab Routine Iron deficiency anemia due to chronic blood loss Expected: 12/08/2023 (Approximate), Expires: 12/07/2024 Comprehensive Metabolic Panel Lab Routine Elevated blood-pressure reading, without diagnosis of hypertension Expected: 12/08/2023 (Approximate), Expires: 12/07/2024 TSH with Reflex to Free T4 Lab Routine Elevated blood-pressure reading, without diagnosis of hypertension Expected: 12/08/2023 (Approximate), Expires: 12/07/2024 Vitamin D, 25-Hydroxy, Total, Immunoassay Lab Routine Vitamin D deficiency Expected: 12/08/2023 (Approximate), Expires: 12/07/2024 Lipid Panel with Reflex to Direct LDL Lab Routine Elevated blood-pressure reading, without diagnosis of hypertension Expected: 12/08/2023 (Approximate), Expires: 12/07/2024 Syphilis Screen Lab Routine Routine screening for STI (sexually transmitted infection) Expected: 12/08/2023 (Approximate), Expires: 12/07/2024 Hepatitis C Antibody with Reflex to HCV, RNA, Quantitative, Real-Time PCR Lab Routine Routine screening for STI (sexually transmitted infection) Expected: 12/08/2023 (Approximate), Expires: 12/07/2024 Hepatitis B Surface Antibody, Qualitative Lab Routine Routine screening for STI (sexually transmitted infection) Expected: 12/08/2023 (Approximate), Expires: 12/07/2024 Hepatitis B Core Antibody, Total Lab Routine Routine screening for STI (sexually transmitted infection) Expected: 12/08/2023 (Approximate), Expires: 12/07/2024 Chlamydia/N. Gonorrhoeae RNA, TMA, Urogenitial Microbiology Routine Routine screening for STI (sexually transmitted infection) Expected: 12/08/2023 (Approximate), Expires: 12/07/2024 HIV-1/2 Antigen and Antibodies, Fourth Generation, with Reflexes Lab Routine Routine screening for STI (sexually transmitted infection) Expected: 12/08/2023 (Approximate), Expires: 12/07/2024 Hepatitis B surface antigen, EIA Lab Routine Routine screening for STI (sexually transmitted infection) Expected: 12/08/2023 (Approximate), Expires: 12/07/2024 Hepatitis A Antibody, Total Lab Routine Routine screening for STI (sexually transmitted infection) Expected: 12/08/2023 (Approximate), Expires: 12/07/2024 documented as of this encounter Procedures Procedure Name Priority Date/Time Associated Diagnosis Comments URINALYSIS, COMPLETE, WITH REFLEX TO CULTURE Routine 07/10/2024 5:54 PM EST Iron deficiency anemia due to chronic blood loss HCG, QL, URINE Routine 07/10/2024 5:54 PM EST Iron deficiency anemia due to chronic blood loss CBC WITH AUTO DIFFERENTIAL Routine 07/10/2024 5:52 PM EST Iron deficiency anemia due to chronic blood loss MAGNESIUM Routine 07/10/2024 5:52 PM EST Iron deficiency anemia due to chronic blood loss COMPREHENSIVE METABOLIC PANEL Routine 07/10/2024 5:52 PM EST Iron deficiency anemia due to chronic blood loss documented in this encounter Results * HCG, Qualitative, Urine (07/10/2024 5:54 PM EST) Urine NEGATIVE NEGATIVE [facility] Comment:This test was develo ped to detect early . Falsenegative results may occur after the 5th - 7th week ofpregnancy when using this test method. If clinicallyindicated, consider a serum hCG. 07/10/2024 5:54 PM EST 07/10/2024 6:19 PM EST us Generic External Data Provider LAB URINE ORDERAB LES Final Result [facility] [address] [place] [phone] * (ABNORMAL) Urinalysis, Complete, with Reflex to Culture (07/10/2024 5:54 PM EST) Color Urine Yellow [facility] Appearance Urine Clear [facility] PH 6.5 5.0 - 9.0 [facility] Glucose Urine UA Negative Negative mg/dL [facility] Urine Blood Trace(A) Negative [facility] Specific [place] - Urine >=1.030(H) 1.005 - 1.025 [facility] Urine Protein Trace Neg-Trace mg/dL [facility] Urine Ketones Trace Negative mg/dL [facility] Nitrite Urine Negative Negative [facility] Leukocyte Esterase Urine Moderate (2+)(A) Negative [facility] RBC Urine 6-10(A) 0 - 2 /HPF [facility] Urine WBC >50(A) 0 - 5 /HPF [facility] Urine Squamous Epithelial Cell 11-20 0 - 2 /HPF [facility] Urine Bacteria 1+ None Seen [facility] Hyaline Casts, Urine 0-2 0 - 2 /LPF [facility] 07/10/2024 5:54 PM EST 07/10/2024 6:02 PM EST Narrative [facility] - 07/10/2024 6:14 PM EST [id number], Clean Catch us Generic External Data Provider LAB URINE ORDERAB LES Final Result Performing Organization Address City/[facility]/ZIP Co de Phone Number [facility] [address] [place] [phone] * Magnesium (07/10/2024 5:52 PM EST) Magnesium 2.2 1.6 - 2.6 mg/dL [facility] 07/10/2024 5:52 PM EST 07/10/2024 6:02 PM EST Generic External Data Provider LAB BLOOD ORDERAB LES Final Result Performing Organization Address [facility] Co de Phone Number [facility] [address] [place] [phone] * (ABNORMAL) Comprehensive Metabolic Panel (07/10/2024 5:52 PM EST) Sodium 142 135 - 145 mmol/L [facility] Potassium 3.9 3.3 - 5.1 mmol/L [facility] Chloride 110(H) 96 - 108 mmol/L [facility] Carbon Dioxide 25 22 - 29 mmol/L [facility] Anion Gap 11(L) 12 - 20 [facility] Urea Nitrogen (BUN) 16 9 - 16 mg/dL [facility] Creatinine, Serum 0.77 0.5 - 1.4 mg/dL [facility] Creatinine Clr Calc Pharmacy 92.3 [facility] Comment:Provided height and weight: 160.02 cm,76.6 kg.eGFR (calculated from the MDRD study equation) and eCrCl(calculated from the Cockcroft-Gault equation) are based ondifferent parameters and may not yield comparable results.If eCrCl result is absurd, please check patient'sheight/weight. Estimated Glomerular Filt Rate >60 [facility] Comment:Chronic Kidney Disea se: Estimated GFR < 60 mL/min/[id number] Kidney Disease: Estimated GFR < 15 mL/min/1.73m2 Glucose 76 60 - 115 mg/dL [facility] Calcium 8.4 8.4 - 10.2 mg/dL [facility] Bilirubin, Total 0.2 0.0 - 1.0 mg/dL [facility] Aspartate Amino Transferase 17 5 - 31 U/L [facility] Alanine Aminotransferase 10 0 - 31 U/L [facility] Total Protein 7.0 6.5 - 8.0 g/dL [facility] Albumin Level 4.0 3.5 - 5.0 g/dL [facility] Alkaline Phosphatase 49 39 - 117 U/L [facility] 07/10/2024 5:52 PM EST 07/10/2024 6:02 PM EST us Generic External Data Provider LAB BLOOD ORDERAB LES Final Result [facility] [address] [place] [phone] * (ABNORMAL) CBC auto differential (07/10/2024 5:52 PM EST) White Blood Count 5.4 4.8 - 10.8 X10*3/uL [facility] Red Blood Count 3.72(L) 4.20 - 5.50 X10*6/uL [facility] Hemoglobin 10.7(L) 12.0 - 16.0 g/dl [facility] Hematocrit 32.7(L) 37.0 - 47.0 % [facility] Mean Corpuscular Volume 87.9 80.0 - 98.0 fL [facility] Mean Corpuscular Hemoglobin 28.8 27.0 - 33.0 pg [facility] Mean Corpuscular HGB Conc 32.7 31.0 - 35.0 g/dl [facility] Red Cell Distribution Width 13.3 11.0 - 16.0 % [facility] Platelet Count 268 160 - 400 X10*3/uL [facility] Mean Platelet Volume 10.3 9.4 - 12.3 fL [facility] Neutrophils Percent Auto 51.0 45 - 73 % [facility] Imm Gran Pct Auto 0.2 0.0 - 0.4 % [facility] Lymphocytes Percent Auto 38.5 20 - 40 % [facility] Monocytes Percent Auto 8.2 2 - 11 % [facility] Eosinophils Percent Auto 1.7 0 - 4 % [facility] Basophils Percent Auto 0.4 0 - 2 % [facility] NRBC Pct Auto 0.0 0.0 - 0.2 /100WBC [facility] Neutrophils Absolute Auto 2.7 2.0 - 8.3 x10*3/uL [facility] Imm Gran Abs Auto 0.01 0.00 - 0.03 X10*3/uL [facility] Lymphocytes Absolute Auto 2.1 1.2 - 4.9 X10*3/uL [facility] Monocytes Absolute Auto 0.4 0.1 - 1.2 X10*3/uL [facility] Eosinophils Absolute Auto 0.1 0.0 - 0.4 X10*3/uL [facility] Basophils Absolute Auto 0.0 0.0 - 0.2 X10*3/uL [facility] NRBC Abs Auto 0.000 0.0 - 0.012 X10*3/uL [facility] 07/10/2024 5:52 PM EST 07/10/2024 6:02 PM EST us Generic External Data Provider LAB BLOOD ORDERAB LES Final Result Performing Organization Address City/State/[facility] Co de Phone Number [facility] [address] [place] [phone] documented in this encounter Visit Diagnoses Diagnosis Iron deficiency anemia due to chronic blood loss- Primary Iron deficiency anemia secondary to blood loss (chronic) Elevated blood-pressure reading, without diagnosis of hypertension Vitamin D deficiency Routine screening for STI (sexually transmitted infection) Screening examination for venereal disease documented in this encounter Additional Health Concerns Assessment Noted Time PHQ-9 Depression Total Score: 7 11/28/19 23 11:05 AM EDT documented as of this encounter Care Teams Mobile Homes Repairer Relationship Specialty Start Date End Date Eliane Hernandez MD [address] [place] [address] PCP - General Family Medicine 04/21/12 documented as of this encounter
--- OUTSIDE RECORDS SUMMARY | 2025-02-19 22:22 | XMS_ITS | Clinical Summary ---
Author Organization [facility] Address [address] [place] [phone] Phone Care Team Providers Care Supervisor Webbing Name Role Phone Unknown, Unknown Primary Care Provider Anai rousele Allergies No known active allergies Medications No known medications Social History Tobacco Use Types Packs/Day Years Used Date Smoking Tobacco: Never Smokeless Tobacco: Never Alcohol Use Standard Drinks/Week Comments Not Currently 0 (1 standard drink = 0.6 oz pur e alcohol) Education Answer Date Recorded Are you interested in more education? Not on oscar e 10/17/2022 Are you concerned about learning? Not on file 10/17/2022 No 10/17/2022 No 10/17/2022 Digital Access Answer Date Recorded No 11/17/2022 No 11/17/2022 No 11/17/2022 Reliable internet access at home? Not on file 11/17/2022 Device with a working camera? Not on file Comments Unknown Sex and Gender Information Value Date Recorded Sex Assigned at Female 12/06/2018 6:05 PM EDT Legal Sex Female 9:20 PM EDT Gender Identity Female 12/06/2018 6:05 PM EDT Sexual Orientation Not on file Last Filed Vital Signs Vital Sign Reading Time Taken Comments Blood Pressure 123/81 12/06/2018 8:30 PM EDT Pulse 66 12/06/2018 8:30 PM EDT Temperature 37 C (98.6 F) 12/06/2018 6:04 PM EDT Respiratory Rate 18 12/06/2018 8:30 PM EDT Oxygen Saturation 100% 12/06/2018 8:30 PM EDT Inhaled Oxygen Concentration - - Weight 84.8 kg (187 lb) 12/06/2018 6:04 PM EDT Height 160 cm (5' 3 ) 12/06/2018 6:04 PM EDT Body Mass Index 33.13 12/06/2018 6:04 PM EDT Plan of Treatment Not on file Medical Devices Not on file Insurance C3 ACO C3 ACO C3 ACO C3 ACO C3 ACO C3 ACO C3 ACO C3 ACO Care Teams Supervisor Webbing Relationship Specialty Start Date End Date Unknown, Unknown, PCP - General 12/06/18 Additional Source Comments The information contained in this document represents components of the legal health record. It is not the complete legal health record.[facility]
[2025-02-20 00:30] VITALS: BP 102/61; PULSE 63; RESP 16; TEMP 36.7; O2SAT 98
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
[2025-02-20 01:44] VITALS: BP 127/70; PULSE 61; RESP 16; TEMP 36.8; O2SAT 99
== END 2025-02-20 01:45 | disposition home or self-care (01) ==
PROVIDERS: Emergency Provider Emergency Medicine; PCP Family Medicine
DX: S13.4XXA Sprain of ligaments of cervical spine, initial encounter (principal); S00.83XA Contusion of other part of head, initial encounter; R51.9 Headache, unspecified; M54.2 Cervicalgia; V43.52XA Car driver injured in collision with other type car in traffic accident, initial encounter; Y93.9 Activity, unspecified; Y92.410 Unspecified street and highway as the place of occurrence of the external cause; Y99.8 Other external cause status
CPT/HCPCS: 70450; 72125; 99284

== ENCOUNTER → 2025-02-19 22:55 | Outpatient (BNV) | payer OTHER, SELFPAY | PROVIDERS: Emergency Provider Emergency Medicine; PCP Family Medicine; Visit Provider Radiology Diagnostic Radiology | DX: M54.2 Cervicalgia (principal); R51.9 Headache, unspecified; V89.2XXA Person injured in unspecified motor-vehicle accident, traffic, initial encounter | CPT/HCPCS: 70450; 72125 ==